=== PATIENT | male | born 1995 | race Caucasian/White ===

== ENCOUNTER 2021-04-19 18:03 | Emergency (ER) | payer OTHER ==
[~2021-04-19] VITALS: Ht 182.9 cm; Wt 91.6 kg
[2021-04-19 18:06] VITALS: BP 140/83
[2021-04-19] MEDS ORDERED: NALO4SPR NS (18:19)
--- NOTE | 2021-04-19 18:31 | NUR ---
Patient discharged to home in stable condition. Written and verbal after care instructions given. Patient verbalizes understanding of instruction.
== END 2021-04-19 18:32 | disposition home or self-care (01) ==
LOC: ER 18:20
DX: T40.601A Poisoning by unspecified narcotics, accidental (unintentional), initial encounter (principal); F15.10 Other stimulant abuse, uncomplicated; F12.10 Cannabis abuse, uncomplicated; Z98.890 Other specified postprocedural states; Y92.89 Other specified places as the place of occurrence of the external cause

== ENCOUNTER 2024-12-02 07:33 | Emergency (ER) | payer OTHER ==
[~2024-12-02] VITALS: Ht 182.9 cm; Wt 95.3 kg
[~2024-12-02 07:33] MED LIST: NALO4SPR NS
[2024-12-02] MEDS: LORAZEPAM 1 MG TABLET PO ONE (08:30)
[2024-12-02] MEDS: IV NS 0.9% 1,000 ML BAG IV ONE (08:30)
[2024-12-02] MEDS: ONDANSETRON HCL/PF 4 MG/2 ML VIAL IVP ONE (08:47)
[2024-12-02] MEDS ORDERED: LORAZEPAM 1 MG TABLET ONE (08:49)
[2024-12-02 08:53] LABS: CALCIUM, SERUM 8.5 mg/dL (8.5-10.1); CREATININE 0.9 mg/dL (0.6-1.3); PLATELET COUNT (AUTO) 461 K/uL (150-450); RED BLOOD CELL COUNT(AUTO) 4.51 MIL/uL (4.5-6.0); RED CELL DISTRIBUTION WIDTH 16.7 % (11.5-15.0); SODIUM SERUM 135.0 mmol/L (136-145); UREA NITROGEN, BLOOD 14.0 mg/dL (7-18); WHITE BLOOD COUNT (AUTO) 7.6 K/uL (4.3-11.0)
[2024-12-02 08:59] LABS: ASPARTATE AMINOTRANSFERASE 25.0 U/L (15-37); TOTAL PROTEIN, SERUM 9.6 g/dL (6.4-8.2)
[2024-12-02] MEDS ORDERED: AMOX-430 PO (09:44)
[2024-12-02] MEDS ORDERED: DOXY100C2 PO (09:44)
[2024-12-02] MEDS ORDERED: ONDA4TAB5 PO (09:44)
[2024-12-02 10:20] VITALS: BP 119/79; TEMP 98; O2SAT 100
== END 2024-12-02 10:20 ==
LOC: ER 07:36
DX: R10.9 Unspecified abdominal pain (principal); R19.7 Diarrhea, unspecified; R11.0 Nausea; R16.1 Splenomegaly, not elsewhere classified; F17.200 Nicotine dependence, unspecified, uncomplicated; R59.0 Localized enlarged lymph nodes; F41.9 Anxiety disorder, unspecified; G89.29 Other chronic pain; Z65.3 Problems related to other legal circumstances; Z88.5 Allergy status to narcotic agent; Z11.3 Encounter for screening for infections with a predominantly sexual mode of transmission
CPT/HCPCS: 99284; 96360; 74176; 85025; 80048; 83690; 80076; 36415; 80320; J7030; G0480